=== PATIENT | male | born 1940 | race Two or more races ===

== ENCOUNTER 2024-10-01 17:23 | Emergency (ER) | payer OTHER ==
[~2024-10-01] VITALS: Ht 180.3 cm; Wt 93.4 kg
[2024-10-01] MEDS ORDERED: COZAAR50 MG PO (17:37)
[2024-10-01] MEDS ORDERED: ZOCOR20 MG (17:37)
[2024-10-01] MEDS ORDERED: ECOTRIN81 MG (17:37)
[2024-10-01] MEDS ORDERED: NITROGLYCERIN IN 5 % DEXTROSE 250 ML IV SCH (17:51)
[2024-10-01] MEDS ORDERED: TICAGRELOR 90 MG TABLET PO ONE (18:00)
[2024-10-01] MEDS ORDERED: ASPIRIN 325 MG TABLET PO ONE (18:00)
[2024-10-01] MEDS ORDERED: PANTOPRAZOLE SODIUM 40 MG/VIAL VIAL IV ONE (18:00)
[2024-10-01] MEDS ORDERED: MORPHINE SULFATE 2 MG/ML SYRINGE IV SCH (18:00)
[2024-10-01 18:17] LABS: HEMATOCRIT 38.7 % (39.0-48.0); HEMOGLOBIN 13.1 g/dL (13-16.00); MEAN CELL VOLUME 88.3 fL (80.0-100.00); MEAN CORPUSCULAR HEMOGLOBIN 29.9 pg (27.00-32.0); MEAN CORPUSCULAR HGB CONC 33.9 g/dl (32.0-36.0); PLATELET COUNT 184 K/uL (150-450); RED BLOOD COUNT 4.39 M/uL (4.00-6.00); RED CELL DISTRIBUTION WIDTH 15.4 % (11.5-14.5)
[2024-10-01 18:33] LABS: PARTIAL THROMBOPLASTIN TIME 24.2 SECONDS (22.0-34.0); PROTHROMBIN TIME 10.9 SECONDS (9.0-11.5)
[2024-10-01 18:39] LABS: ALBUMIN 3.5 gm/dL (3.4-5.0); BILIRUBIN TOTAL 0.33 mg/dL (0.3-1.2); CREATININE SERUM 1.17 mg/dL (0.70-1.30); GFR 59.54; GLOBULINA 3.7 G/DL (2.4-3.5); POTASSIUM 3.43 mEq/L (3.5-5.1); TOTAL PROTEIN 7.2 gm/dL (6.4-8.2)
== END 2024-10-01 19:40 | disposition designated cancer center or children's hospital (05) ==
LOC: ER 17:23
PROVIDERS: General Practice
DX: I21.29 ST elevation (STEMI) myocardial infarction involving other sites (principal); I25.2 Old myocardial infarction; I10 Essential (primary) hypertension; E78.00 Pure hypercholesterolemia, unspecified; I11.9 Hypertensive heart disease without heart failure
CPT/HCPCS: 36415; 93005; 96365; 99285; J3490